=== PATIENT | female | born 1980 | race Caucasian/White ===

== ENCOUNTER 2023-07-23 10:36 | Emergency (ER) | payer SELFPAY ==
[~2023-07-23] VITALS: Ht 170.2 cm; Wt 68.0 kg
[~2023-07-23 10:36] MED LIST: CETI10TA6 MT; P50 MT
[2023-07-23 10:50] VITALS: O2SAT 97
[2023-07-23 11:23] LABS: BASOPHILS % 0.8 % (0.0-2.0); EOSINOPHILS % 1.2 % (0.0-5.0); HEMATOCRIT. 33.5 % (36.0-48.0); HEMOGLOBIN. 11.4 g/dL (12.0-16.0); LYMPHOCYTES % 43.9 % (20.0-50.0); MEAN CORPUSCULAR HEMOGLOBIN 30.3 pg (28.0-32.0); MEAN CORPUSCULAR HGB CONC 33.9 g/dL (31.0-37.0); MEAN CORPUSCULAR VOLUME 89.3 fL (81.0-99.0); MEAN PLATELET VOLUME 6.5 fl (7.4-10.4); MONOCYTES % 7.2 % (2.0-8.0); NEUTROPHILS % 46.9 % (40.0-76.0); PLATELET 395 x1000/uL (130-400); RED BLOOD CELL COUNT 3.75 mill/uL (4.2-5.4); RED CELL DISTRIBUTION WIDTH 12.9 % (11.6-14.6); WHITE BLOOD COUNT 6.9 x1000/uL (4.5-11.0)
[2023-07-23 11:36] LABS: ACETAMINOPHEN < 2 ug/mL (10-30); ALANINE AMINOTRANSFERASE 21 IU/L (10-49); ALBUMIN 3.9 g/dL (3.2-4.8); ASPARTATE AMINOTRANSFERASE 34 IU/L (<34); BILIRUBIN TOTAL 0.4 mg/dL (0.1-1.0); CALCIUM 8.8 mg/dL (8.7-10.4); CARBON DIOXIDE 31 mEq/L (21-32); CHLORIDE 106 mEq/L (98-107); CREATININE 0.6 mg/dL (0.6-1.0); GLUCOSE 105 mg/dL (70-105); POTASSIUM 3.7 mEq/L (3.5-5.1); PROTEIN TOTAL 7.3 g/dL (6.0-8.3); SODIUM 138 mEq/L (136-145); UREA NITROGEN BLOOD 12 mg/dL (9-23)
[2023-07-23 11:54] LABS: ETHANOL BLOOD < 10 mg/dL (<10)
[2023-07-23 14:51] LABS: CLARITY URINE CLEAR (CLEAR); COLOR URINE YELLOW (YELLOW); GLUCOSE URINE NEGATIVE (NEGATIVE); KETONES URINE TRACE (NEGATIVE); LEUKOCYTE ESTERASE URINE NEGATIVE (NEGATIVE); NITRITE URINE NEGATIVE (NEGATIVE); OCCULT BLOOD URINE NEGATIVE (NEGATIVE); PH URINE 6.5 (4.5-8.0); PROTEIN URINE NEGATIVE (NEGATIVE); SPECIFIC GRAVITY URINE 1.023 (1.005-1.030); UROBILINOGEN URINE 0.2 E.U./dL (0.2-1.0)
[2023-07-23 15:18] VITALS: BP 100/89; PULSE 65; RESP 16; TEMP 97.6
[2023-07-23] MEDS ORDERED: ONDANSETRON HCL 4MG/2ML INJ IV ONE (15:45)
[2023-07-23] MEDS ORDERED: ONDANSETRON HCL 4MG TABLET PO ONE (15:45)
[2023-07-23 15:52] LABS: *AMPHETAMINES SCREEN URINE NEGATIVE (NEGATIVE); *BARBITURATES SCREEN URINE NEGATIVE (NEGATIVE); *BENZODIAZEPINES SCREEN URINE NEGATIVE (NEGATIVE); *COCAINE SCREEN URINE NEGATIVE (NEGATIVE); CANNABINOID URINE SCREEN NEGATIVE (NEGATIVE); ECSTASY MDMA SCREEN URINE NEGATIVE (NEGATIVE); METHADONE URINE SCREEN Neg (NEGATIVE); OPIATES URINE SCREEN NEGATIVE (NEGATIVE); PHENCYCLIDINE URINE SCREEN NEGATIVE (NEGATIVE)
== END 2023-07-23 21:42 | disposition home or self-care (01) ==
LOC: ER 10:50
DX: R44.0 Auditory hallucinations (principal)
CPT/HCPCS: 80053; 80305; 81003; 80307; 80329; 80320; 82962; 85025; 36415; 71045; 93005; 96374; 99285; Q0162; J2405; Z7610 ×4; G0480

== ENCOUNTER 2023-08-07 18:20 | Emergency (ER) | payer SELFPAY ==
[~2023-08-07] VITALS: Ht 167.6 cm; Wt 55.0 kg
[2023-08-07 18:43] VITALS: TEMP 100; O2SAT 99
[2023-08-07] MEDS ORDERED: ACETAMINOPHEN 325MG TABLET PO ONE (20:00)
[2023-08-07] MEDS ORDERED: AMOXL215 MT (20:13)
[2023-08-07] MEDS ORDERED: IBUP-2028 MT (20:13)
[2023-08-07 20:25] VITALS: BP 102/59; PULSE 91; RESP 17
== END 2023-08-07 20:28 | disposition home or self-care (01) ==
LOC: ER 18:20
DX: H66.91 Otitis media, unspecified, right ear (principal); H72.91 Unspecified perforation of tympanic membrane, right ear
CPT/HCPCS: 99282